=== PATIENT | female | born 1950 | race Caucasian/White ===

== ENCOUNTER 2018-07-13 15:11 | Inpatient (IN) ==
[2018-07-13 16:57] LABS: Baso # (Auto) 0.1 th/mm3 (0.0-0.2); Baso % (Auto) 0.5 % (0.0-2.0); Eos % (Auto) 0.1 % (0.0-4.0); Hematocrit 41.2 % (35.0-46.0); Hemoglobin 13.9 gm/dL (11.6-15.3); Lymph # (Auto) 1.1 th/mm3 (1.0-4.8); Lymph % (Auto) 8.5 % (9.0-44.0); Mean Corpuscular HGB Conc 33.6 % (32.0-36.0); Mean Corpuscular Hemoglobin 30.3 pg (27.0-34.0); Mean Corpuscular Volume 90.2 fL (80.0-100.0); Mean Platelet Volume 9.9 fL (7.0-11.0); Mono # (Auto) 0.7 th/mm3 (0.0-0.9); Mono % (Auto) 5.6 % (0.0-8.0); Neut # (Auto) 10.8 th/mm3 (1.8-7.7); Neut % (Auto) 85.3 % (16.0-70.0); Platelet Count 339 th/mm3 (150-450); Red Blood Count 4.57 mil/mm3 (4.00-5.30); Red Cell Distribution Width 12.7 % (11.6-17.2); White Blood Count 12.6 th/mm3 (4.0-11.0)
[2018-07-13 17:18] LABS: Alanine Aminotransferase 35 U/L (10-53)
[2018-07-13 17:27] LABS: Alkaline Phosphatase 86 U/L (45-117)
[2018-07-13 17:30] LABS: Anion Gap 8 meq/L (5-15); Aspartate Aminotransferase 29 U/L (15-37); Blood Urea Nitrogen 17 mg/dL (7-18); Calcium 9.1 mg/dL (8.5-10.1); Carbon Dioxide 24.7 meq/L (21.0-32.0); Chloride 109 meq/L (98-107); Glomerular Filtration Rate 71 mL/min (>89); Glucose,Random 106 mg/dL (74-106); Magnesium 2.3 mg/dL (1.5-2.5); Potassium 3.6 meq/L (3.5-5.1); Sodium 142 meq/L (136-145)
[2018-07-13 17:37] LABS: Bacteria,Urine Occasional /hpf; Bilirubin,Urine Negative (Negative); Color,Urine Yellow (Yellw/Straw); Glucose,Urine (UA) Negative (Negative); Hyaline Casts,Urine 14 /lpf (0-3); Leukocyte Esterase,Urine Negative (Negative); Mucus,Urine Many /lpf (Occasional); Nitrite,Urine Negative (Negative); Specific Gravity,Urine 1.031 (1.002-1.035); Squamous Epithelial Cell,Urine <1 /hpf (0-5)
--- NOTE | 2018-07-13 17:37 | ED ---
HPI General Chief Complaint: Psychiatric Symptoms Stated Complaint: Psych eval/EDPD Time Seen by Provider: 07/14/18 11:15 History of Present Illness HPI Narrative: Patient is a 68-year-old female who was brought to the emergency room by law enforcement officers for suicidal ideation. Per the medical record patient has been taking care of her mother and reportedly is depressed and overwhelmed by this and requested that a precinct i police sergeant shoot her. When the patient was brought to the pod for evaluation the patient was very agitated and throwing things in the room, threatening to leave. She was restrained and sedated therefore no further HPI is obtainable at this time. Patient is admitted for psychiatric evaluation. Will move forward with medical clearance Related Data Home Medications Medication Instructions Recorded Confirmed sertraline 100 mg PO DAILY 07/14/18 07/14/18 Allergies Allergy/AdvReac Type Severity Reaction Status Date / Time No Known Allergies Allergy Verified 07/13/18 15:52 PM[facility] Social History Social History Substance History: No History of Abuse Second Hand Smoke Exposure: Yes Smoking Status: Current every day smoker Tobacco Type: Cigarettes How Often Do You Have a Drink Containing Alcohol: 2 to 4 times a month Immunization History Tetanus Immunization: Unsure Exam Narrative Exam Narrative: GENERAL: Well-nourished, well-developed patient. SKIN: Focused skin assessment warm/dry. HEAD: Normocephalic. EYES: No scleral icterus. No injection or drainage. NECK: Supple, trachea midline. No JVD or lymphadenopathy. CARDIOVASCULAR: Regular rate and rhythm without murmurs, gallops, or rubs. RESPIRATORY: Breath sounds equal bilaterally. No accessory muscle use. GASTROINTESTINAL: Abdomen soft, non-tender, nondistended. MUSCULOSKELETAL: No cyanosis, or edema. BACK: Nontender without obvious deformity. No CVA tenderness. Psych: Pt alert/aggitated, loses train of thought when trying to communicate history. Course Initial Documented Vital Signs Temperature 98.0 F 07/13/18 15:54 Pulse Rate 108 H 07/13/18 15:54 Respiratory Rate 18 07/13/18 15:54 Blood Pressure 141/88 H 07/13/18 15:54 Last Documented Vital Signs Temperature 98.6 F 07/14/18 18:57 Pulse Rate 89 07/14/18 10:54 Respiratory Rate 14 07/14/18 18:57 Blood Pressure 148/79 H 07/14/18 18:57 Pulse Oximetry 100 07/14/18 18:57 Medical Decision Making MDM Narrative Medical decision making narrative: Patient is a 68 YOF who was brought to the ED under BA by ART. Patient was agitated and aggressive throwing things upon arrival to this pod, refusing labwork, etc. Patient was given Ativan 2 mg IM and Geodon 10 mg IM. She is unable to contribute to HPI. Routine psych clearnace eval in progress. CBC shows mild leukocytosis. UA essentially negative for UTI. UDS + for benzos. TSH unremarkable.CMP shows mildly low chloride but otherwise WNL. Pt clear medically for psych. Patient remains sedated at this time. Medical Screen Exam Complete: Yes Emergency Medical Condition: Yes Differential Diagnosis Differential Diagnosis: Depression./anxiety/psychosis Lab Data Result diagrams: 07/13/18 16:50 07/13/18 16:50 Lab Results 07/13/18 07/13/18 07/13/18 Range/Units 16:50 16:50 17:14 WBC 12.6 H (4.0-11.0) th/mm3 RBC 4.57 (4.00-5.30) mil/mm3 Hgb 13.9 (11.6-15.3) gm/dL Hct 41.2 (35.0-46.0) % MCV 90.2 (80.0-100.0) fL MCH 30.3 (27.0-34.0) pg MCHC 33.6 (32.0-36.0) % RDW 12.7 (11.6-17.2) % Plt Count 339 (150-450) th/mm3 MPV 9.9 (7.0-11.0) fL Neut % (Auto) 85.3 H (16.0-70.0) % Lymph % (Auto) 8.5 L (9.0-44.0) % [place] % (Auto) 5.6 (0.0-8.0) % Eos % (Auto) 0.1 (0.0-4.0) % Baso % (Auto) 0.5 (0.0-2.0) % Neut # (Auto) 10.8 H (1.8-7.7) th/mm3 Lymph # (Auto) 1.1 (1.0-4.8) th/mm3 [place] # (Auto) 0.7 (0.0-0.9) th/mm3 Eos # (Auto) 0.0 (0.0-0.4) th/mm3 Baso # (Auto) 0.1 (0.0-0.2) th/mm3 WBC Differential . Differential Comment Auto diff final Sodium 142 (136-145) meq/L Potassium 3.6 (3.5-5.1) meq/L Chloride 109 H (98-107) meq/L Carbon Dioxide 24.7 (21.0-32.0) meq/L Anion Gap 8 (5-15) meq/L BUN 17 (7-18) mg/dL Creatinine 0.81 (0.50-1.00) mg/dL Estimated GFR 71 L (>89) mL/min Random Glucose 106 (74-106) mg/dL Calcium 9.1 (8.5-10.1) mg/dL Magnesium 2.3 (1.5-2.5) mg/dL Total Bilirubin 0.5 (0.2-1.0) mg/dL AST 29 (15-37) U/L ALT 35 (10-53) U/L Alkaline Phosphatase 86 (45-117) U/L Total Protein 8.0 (6.4-8.2) g/dL Albumin 4.0 (3.4-5.0) g/dL TSH 1.580 (0.358-3.740) uIU/mL Urine Color (Yellw/Straw) Urine Clarity (Clear) Urine pH (5.0-8.5) Ur Specific [place] (1.002-1.035) Urine Protein (Neg-Trace) mg/dL Urine Glucose (UA) (Negative) mg/dL Urine Ketones (Negative) mg/dL Urine Occult Blood (Negative) Urine Nitrate (Negative) Urine Bilirubin (Negative) Urine Urobilinogen (Less than 2) mg/dL Ur Leukocyte Esterase (Negative) Urine RBC (0-3) /hpf Urine WBC (0-5) /hpf Ur Squamous Epith Cells (0-5) /hpf Urine Bacteria (None) /hpf Hyaline Casts (0-3) /lpf Urine Mucus (Occasional) /lpf Micro UA Comment Ur Microscopic Review Urine Culture Comments Urine Opiates Screen Neg (Neg) Ur Barbiturates Screen Neg (Neg) Ur Amphetamines Screen Neg (Neg) U Benzodiazepines Scrn Pos H (Neg) Urine Cocaine Screen Neg (Neg) U Cannabinoids Screen Neg (Neg) Serum Alcohol Less than 3 (0-5) mg/dL 07/13/18 Range/Units 17:14 WBC (4.0-11.0) th/mm3 RBC (4.00-5.30) mil/mm3 Hgb (11.6-15.3) gm/dL Hct (35.0-46.0) % MCV (80.0-100.0) fL MCH (27.0-34.0) pg MCHC (32.0-36.0) % RDW (11.6-17.2) % Plt Count (150-450) th/mm3 MPV (7.0-11.0) fL Neut % (Auto) (16.0-70.0) % Lymph % (Auto) (9.0-44.0) % [place] % (Auto) (0.0-8.0) % Eos % (Auto) (0.0-4.0) % Baso % (Auto) (0.0-2.0) % Neut # (Auto) (1.8-7.7) th/mm3 Lymph # (Auto) (1.0-4.8) th/mm3 [place] # (Auto) (0.0-0.9) th/mm3 Eos # (Auto) (0.0-0.4) th/mm3 Baso # (Auto) (0.0-0.2) th/mm3 WBC Differential Differential Comment Sodium (136-145) meq/L Potassium (3.5-5.1) meq/L Chloride (98-107) meq/L Carbon Dioxide (21.0-32.0) meq/L Anion Gap (5-15) meq/L BUN (7-18) mg/dL Creatinine (0.50-1.00) mg/dL Estimated GFR (>89) mL/min Random Glucose (74-106) mg/dL Calcium (8.5-10.1) mg/dL Magnesium (1.5-2.5) mg/dL Total Bilirubin (0.2-1.0) mg/dL AST (15-37) U/L ALT (10-53) U/L Alkaline Phosphatase (45-117) U/L Total Protein (6.4-8.2) g/dL Albumin (3.4-5.0) g/dL TSH (0.358-3.740) uIU/mL Urine Color Yellow (Yellw/Straw) Urine Clarity Hazy H (Clear) Urine pH 5.0 (5.0-8.5) Ur Specific [place] 1.031 (1.002-1.035) Urine Protein 30 H (Neg-Trace) mg/dL Urine Glucose (UA) Negative (Negative) mg/dL Urine Ketones 20 (Negative) mg/dL Urine Occult Blood Negative (Negative) Urine Nitrate Negative (Negative) Urine Bilirubin Negative (Negative) Urine Urobilinogen 2.0 H (Less than 2) mg/dL Ur Leukocyte Esterase Negative (Negative) Urine RBC Less than 1 (0-3) /hpf Urine WBC 2 (0-5) /hpf Ur Squamous Epith Cells <1 (0-5) /hpf Urine Bacteria Occasional H (None) /hpf Hyaline Casts 14 (0-3) /lpf Urine Mucus Many H (Occasional) /lpf Micro UA Comment Cath-culture ind Ur Microscopic Review Not Reportable Urine Culture Comments Cath-cult indicated Urine Opiates Screen (Neg) Ur Barbiturates Screen (Neg) Ur Amphetamines Screen (Neg) U Benzodiazepines Scrn (Neg) Urine Cocaine Screen (Neg) U Cannabinoids Screen (Neg) Serum Alcohol (0-5) mg/dL Discharge Plan Discharge Disposition Patient Disposition: ED Admit(ED Internal Use Only) Discharge Order Discharge Orders: ED Use Only Admit Order (Routine); Ordered 07/14/18 Ordered By: Spring [facility] Team ED Provider: Nura Aldana ED Midlevel Provider: Britney Jorge Primary Care Provider: UNKNOWN, Attending Provider: Sammy Pedroza Status ED Status: Left Department Discharge Information Discharge Date/Time: 07/14/18 17:09
[2018-07-13 17:38] LABS: Amphetamine Screen,Urine Neg (Neg); Barbiturate Screen,Urine Neg (Neg); Cannabinoid Screen,Urine Neg (Neg); Clarity,Urine Hazy (Clear); Cocaine Screen,Urine Neg (Neg)
[2018-07-13 17:48] LABS: Opiate Screen,Urine Neg (Neg)
--- NOTE | 2018-07-14 12:08 | ED ---
HPI - Psych - General Source: patient, family (Spoke with Whit via telephone [phone]) Mode of arrival: EMS Limitations: no limitations - History of Present Illness MD complaint: other Onset (ago): week(s) Duration: constant History of same: Yes Relieving factors: none Exacerbating factors: other (Current family stressors) Context: not taking psychiatric medications, significant life stressor Associated psychiatric symptoms: other (Anxiety) Associated symptoms: denies other symptoms Treatments prior to arrival: placed on mental health hold, physical restraints, chemical restraints If self harm: other (Denies at present) - General Chief Complaint: Psychiatric Symptoms Stated Complaint: Psych eval/EDPD Time Seen by Provider: 07/14/18 11:15 - History of Present Illness HPI Narrative: History of Present Illness HPI Narrative: Patient is a 68-year-old ,female, , retired legal support specialist, with reported history of depression, anxiety, no previous psychiatric hospitalizations, no history of suicide attempts, who was brought to the emergency room by law enforcement officers under a Benson act. The Benson act alleges that the patient" is off her antidepressants since . Britt is supposed to care for her mother, however allegedly has not been feeding her for a few days. Britt has been acting irrational and even asked for police to shoot her and put her out of her misery. Also stated she would kill herself with the cuffs." On arrival to the ED the patient presented in an agitated manner, is alleged to have been verbally abusive towards staff, throwing things on the floor, threatening to leave not responding to verbal redirection and required ETO as well as restraints for her safety and the safety of others. Nurse Justino report that officers responding to the call reported that she had only been feeding her mother peanut butter for the past week and that DCF has been involved. She also states that the patient's sister who lives in [place] has reported that the patient has been sending her message that make no sense at all. EMR reviewed. No previous contact with [facility] psychiatry. Current toxicology is positive for benzodiazepines. Patient is seen. Patient is alert and oriented, she is not agitated and has been able to maintain self-control. At times during the interview the patient closes her eyes and keeps her eyes closed for extended period of time. She states" I feel better now that I am here in a safe place and so that I can help complete the process to be able to take care of my mother and take her to [place]."Her speech is clear, it is not pressured. She does not present any evidence of any psychosis, denies any hallucinations. I can elicit no delusions or paranoia. Patient reports mood as anxious. Admits that she has not been sleeping well since June 27 and that for the past several days she has only been able to get at most 2-3 hours per night due to caring for her mother. She denies any suicidal or homicidal ideation, intent or plan. Attention is appropriate. Decreased concentration is noted. When asked about concerns that her sister has presented she minimizes these concerns and states "I have been sending her text messages but that was only my attempt to try and keep family of breast of current staging situation". Telephone call to her , Mora Rosas at [phone] with her expressed verbal consent. reports that the patient has been here in [place] for approximately 2 weeks and that he came down from [place] last bone Sunday out of his concern for her psychological state and her ability to take care of herself under current conditions. Goes on to state that" she has been stressed and is having a nervous breakdown". Goes on to state that he had a similar presentation in April and was seen in an emergency department in [place], discharged and had been seeing a therapist for a few sessions. The behaviors he describes is that she has not been sleeping, has been walking around, not making any sense whatsoever, she calls them but then does not allow him to talk. He is concerned for her well-being if she is discharge and would prefer she remain in the hospital for stabilization. He will drive fly down from [place] when the patient is discharged to take her back home. (Spring eJrez) - Related Data Home Medications Medication Instructions Recorded Confirmed sertraline 100 mg PO DAILY 07/14/18 07/14/18 Allergies Allergy/AdvReac Type Severity Reaction Status Date / Time No Known Allergies Allergy Verified 07/13/18 15:52 [facility] - History History Provided By: Patient, Family Member - Social History I have reviewed the patient's Social History: Yes - Tobacco History Tobacco Use In Past 30 Days: Yes Smoking Status: Current every day smoker Tobacco Type: Cigarettes - Alcohol History How Often Do You Have a Drink Containing Alcohol: 2 to 4 times a month - Substance Use History Substance History: No History of Abuse - Immunization History Tetanus Immunization: Unsure Psychiatric History - Psychiatric History Psychiatric Treatment History: History of Psychiatric Treatment History of Inpatient Treatment: No Firearms in Home: No - Psychiatric History Patient denies any previous psychiatric hospitalizations. Does state that approximately 30 years ago she had a similar episode and was diagnosed as having a chemical imbalance. She was ordered amitriptyline and took it for several years. She is now prescribed Zoloft but according to family members stopped taking it. (Jerez,Spring) - Legal History None reported (Jerez,Spring) - Family Psychiatric History None reported (Spring Jerez) Mental Status Examination Consciousness: Alert Orientation: x4 Motor Activity: Normal gait Speech: Rapid Language: Adequate Fund of Knowledge: Adequate Attention and Concentration: Easily distracted Memory: Unremarkable Mood: Anxious Affect: Other (Incongruent to mood at times) Thought Process & Associations: Intact, Logical, Goal directed Thought Content: Appropriate Hallucination Type: None Delusion Type: None Suicidal Ideation: No Suicidal Plan: No Suicidal Intention: No Homicidal Ideation: No Homicidal Plan: No Homicidal Intention: No Insight: Poor Judgment: Impulsive Initial Documented Vital Signs Temperature 98.0 F 07/13/18 15:54 Pulse Rate 108 H 07/13/18 15:54 Respiratory Rate 18 07/13/18 15:54 Blood Pressure 141/88 H 07/13/18 15:54 Last Documented Vital Signs Temperature 98.0 F 07/13/18 15:54 Pulse Rate 89 07/14/18 10:54 Respiratory Rate 18 07/14/18 10:54 Blood Pressure 112/73 07/14/18 10:54 Pulse Oximetry 97 07/14/18 10:54 MDM - Psych - Diagnosis (1) Bipolar disorder, current episode hypomanic Code(s): F31.0 - Bipolar disorder, current episode hypomanic Status: Acute - Lab Data Result diagrams: 07/13/18 16:50 07/13/18 16:50 - [facility] Narrative Medical decision making narrative: 68-year-old female with reported history of depression under a Benson act after the police were called due to family concerns over her behavior including not feeding her mom whom she was taking care of for a few days, acting irrational and requesting the police to shoot her and put her out of her misery, not sleeping for extended period of time. Her presented concerns over the patient's behavior over the recent weeks including her lack of sleep, her walking around aimlessly, hyperverbal speech, and poor judgment. Patient meets criteria for inpatient psychiatric treatment for further evaluation, stabilization and for safety. This plan was discussed with her who agrees completely and who states he will fly down to [place] to pick her up and bring her back to [place] upon discharge. (Spring Jerez) - Lab Data Lab Results 07/13/18 07/13/18 07/13/18 Range/Units 16:50 16:50 17:14 WBC 12.6 H (4.0-11.0) th/mm3 RBC 4.57 (4.00-5.30) mil/mm3 Hgb 13.9 (11.6-15.3) gm/dL Hct 41.2 (35.0-46.0) % MCV 90.2 (80.0-100.0) fL MCH 30.3 (27.0-34.0) pg MCHC 33.6 (32.0-36.0) % RDW 12.7 (11.6-17.2) % Plt Count 339 (150-450) th/mm3 MPV 9.9 (7.0-11.0) fL Neut % (Auto) 85.3 H (16.0-70.0) % Lymph % (Auto) 8.5 L (9.0-44.0) % [place] % (Auto) 5.6 (0.0-8.0) % Eos % (Auto) 0.1 (0.0-4.0) % Baso % (Auto) 0.5 (0.0-2.0) % Neut # (Auto) 10.8 H (1.8-7.7) th/mm3 Lymph # (Auto) 1.1 (1.0-4.8) th/mm3 [place] # (Auto) 0.7 (0.0-0.9) th/mm3 Eos # (Auto) 0.0 (0.0-0.4) th/mm3 Baso # (Auto) 0.1 (0.0-0.2) th/mm3 WBC Differential . Differential Comment Auto diff final Sodium 142 (136-145) meq/L Potassium 3.6 (3.5-5.1) meq/L Chloride 109 H (98-107) meq/L Carbon Dioxide 24.7 (21.0-32.0) meq/L Anion Gap 8 (5-15) meq/L BUN 17 (7-18) mg/dL Creatinine 0.81 (0.50-1.00) mg/dL Estimated GFR 71 L (>89) mL/min Random Glucose 106 (74-106) mg/dL Calcium 9.1 (8.5-10.1) mg/dL Magnesium 2.3 (1.5-2.5) mg/dL Total Bilirubin 0.5 (0.2-1.0) mg/dL AST 29 (15-37) U/L ALT 35 (10-53) U/L Alkaline Phosphatase 86 (45-117) U/L Total Protein 8.0 (6.4-8.2) g/dL Albumin 4.0 (3.4-5.0) g/dL TSH 1.580 (0.358-3.740) uIU/mL Urine Color (Yellw/Straw) Urine Clarity (Clear) Urine pH (5.0-8.5) Ur Specific [place] (1.002-1.035) Urine Protein (Neg-Trace) mg/dL Urine Glucose (UA) (Negative) mg/dL Urine Ketones (Negative) mg/dL Urine Occult Blood (Negative) Urine Nitrate (Negative) Urine Bilirubin (Negative) Urine Urobilinogen (Less than 2) mg/dL Ur Leukocyte Esterase (Negative) Urine RBC (0-3) /hpf Urine WBC (0-5) /hpf Ur Squamous Epith Cells (0-5) /hpf Urine Bacteria (None) /hpf Hyaline Casts (0-3) /lpf Urine Mucus (Occasional) /lpf Micro UA Comment Ur Microscopic Review Urine Culture Comments Urine Opiates Screen Neg (Neg) Ur Barbiturates Screen Neg (Neg) Ur Amphetamines Screen Neg (Neg) U Benzodiazepines Scrn Pos H (Neg) Urine Cocaine Screen Neg (Neg) U Cannabinoids Screen Neg (Neg) Serum Alcohol Less than 3 (0-5) mg/dL 07/13/18 Range/Units 17:14 WBC (4.0-11.0) th/mm3 RBC (4.00-5.30) mil/mm3 Hgb (11.6-15.3) gm/dL Hct (35.0-46.0) % MCV (80.0-100.0) fL MCH (27.0-34.0) pg MCHC (32.0-36.0) % RDW (11.6-17.2) % Plt Count (150-450) th/mm3 MPV (7.0-11.0) fL Neut % (Auto) (16.0-70.0) % Lymph % (Auto) (9.0-44.0) % Snyder % (Auto) (0.0-8.0) % Eos % (Auto) (0.0-4.0) % Baso % (Auto) (0.0-2.0) % Neut # (Auto) (1.8-7.7) th/mm3 Lymph # (Auto) (1.0-4.8) th/mm3 [place] # (Auto) (0.0-0.9) th/mm3 Eos # (Auto) (0.0-0.4) th/mm3 Baso # (Auto) (0.0-0.2) th/mm3 WBC Differential Differential Comment Sodium (136-145) meq/L Potassium (3.5-5.1) meq/L Chloride (98-107) meq/L Carbon Dioxide (21.0-32.0) meq/L Anion Gap (5-15) meq/L BUN (7-18) mg/dL Creatinine (0.50-1.00) mg/dL Estimated GFR (>89) mL/min Random Glucose (74-106) mg/dL Calcium (8.5-10.1) mg/dL Magnesium (1.5-2.5) mg/dL Total Bilirubin (0.2-1.0) mg/dL AST (15-37) U/L ALT (10-53) U/L Alkaline Phosphatase (45-117) U/L Total Protein (6.4-8.2) g/dL Albumin (3.4-5.0) g/dL TSH (0.358-3.740) uIU/mL Urine Color Yellow (Yellw/Straw) Urine Clarity Hazy H (Clear) Urine pH 5.0 (5.0-8.5) Ur Specific [place] 1.031 (1.002-1.035) Urine Protein 30 H (Neg-Trace) mg/dL Urine Glucose (UA) Negative (Negative) mg/dL Urine Ketones 20 (Negative) mg/dL Urine Occult Blood Negative (Negative) Urine Nitrate Negative (Negative) Urine Bilirubin Negative (Negative) Urine Urobilinogen 2.0 H (Less than 2) mg/dL Ur Leukocyte Esterase Negative (Negative) Urine RBC Less than 1 (0-3) /hpf Urine WBC 2 (0-5) /hpf Ur Squamous Epith Cells <1 (0-5) /hpf Urine Bacteria Occasional H (None) /hpf Hyaline Casts 14 (0-3) /lpf Urine Mucus Many H (Occasional) /lpf Micro UA Comment Cath-culture ind Ur Microscopic Review Not Reportable Urine Culture Comments Cath-cult indicated Urine Opiates Screen (Neg) Ur Barbiturates Screen (Neg) Ur Amphetamines Screen (Neg) U Benzodiazepines Scrn (Neg) Urine Cocaine Screen (Neg) U Cannabinoids Screen (Neg) Serum Alcohol (0-5) mg/dL
[2018-07-14] MEDS ORDERED: Aluminum/Magnesium/Simethacone Susp 30 ML UDC PO PRN (12:10)
[2018-07-14] MEDS: Senna/Docusate Sodium 8.6/50 MG Tablet PO SCH (23:08)
[2018-07-15 07:21] LABS: Anion Gap 10 meq/L (5-15); Blood Urea Nitrogen 13 mg/dL (7-18); Calcium 8.2 mg/dL (8.5-10.1); Carbon Dioxide 24.3 meq/L (21.0-32.0); Chloride 106 meq/L (98-107); Cholesterol 123 mg/dL (120-200); Glomerular Filtration Rate Greater Than 89 mL/min (>89); Glucose,Random 91 mg/dL (74-106); Potassium 3.3 meq/L (3.5-5.1); Sodium 140 meq/L (136-145); Triglycerides 65 mg/dL (42-150)
[2018-07-15 07:25] LABS: Chol/HDL Ratio 1.93 Ratio; HDL Cholesterol 63.5 mg/dL (40.0-60.0); LDL Cholesterol,Calculated 47 mg/dL (0-99)
[2018-07-15] MEDS: Senna/Docusate Sodium 8.6/50 MG Tablet PO SCH ×2 (08:23→20:27)
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
[2018-07-15] MEDS ORDERED: Acetaminophen 325 MG Tablet PO PRN (15:16)
[2018-07-15 19:00] LABS: Hemoglobin A1c 5.4 % (4.3-6.0)
[2018-07-15] MEDS: traZODone 50 MG Tablet PO PRN (20:26)
[2018-07-16] MEDS: Sertraline 50 MG Tablet PO SCH (08:36)
[2018-07-16] MEDS: Senna/Docusate Sodium 8.6/50 MG Tablet PO SCH ×2 (08:39→20:12)
[2018-07-16] MEDS: Divalproex 250 MG DR Tablet PO SCH ×2 (10:35→20:11)
[2018-07-16] MEDS: Divalproex 500 MG DR Tablet PO SCH ×2 (10:35→20:11)
--- NOTE | 2018-07-16 15:25 | ECG ---
Date Performed: 07/15/2018 Time Performed: 11:17:46 PTAGE: 68 years EKG: Sinus rhythm MODERATE INTRAVENTRICULAR CONDUCTION DELAY MINIMAL VOLTAGE CRITERIA FOR LVH, CONSIDER NORMAL VARIANT BORDERLINE ECG NO PREVIOUS TRACING DOCTOR: Dandre Starks Interpretating Date/Time 07/16/2018 15:20:43
--- NOTE | 2018-07-16 16:20 | P.PNPSY ---
Subjective Chief Complaint: "I have been overtired and overwhelmed" Remarks: Patient seen for follow-up, chart reviewed, patient discussed with nursing staff ; we reviewed the patient's mood, thoughts, and behaviors from overnight and this morning. There is reports the patient was up after midnight with a rambling speech and disorganized behavior. She reportedly came out of her room and dressed. She is also been observed on the unit and in the day room talking to herself for up to an hour straight. Patient reportedly only got 4 hours of sleep last night even though she had trazodone 50 mg as needed. The patient was seen this morning after breakfast and reports that her "mind is still racing But I want to be discharged." The patient reports that her is getting into night and she would like to be discharged so she can meet them at the hotel room. We discussed our plan of making medication adjustments to stabilize her mental status and she acknowledges that the initial trial of trazodone was ineffective. We discussed risks benefits side effects and alternative treatments and she agrees to start Depakote for acute management of marvel. She refuses antipsychotics or benzodiazepines at this time. She agreed for continued hospitalization and reconsideration of discharge tomorrow. She asked that her spouse be involved in the discharge planning; the patient's spouse was contacted by phone at [phone], and he acknowledged an understanding of the treatment plan as well as his support. Patient's spouse indicates that from his interactions with her on the phone she is still not at her baseline mental status or personality and he would prefer that she stay there over night and reevaluate during a family meeting tomorrow at 1:00. Review of Systems unobtainable due to mental status Mental Status Examination Appearance: Appropriate Consciousness: Alert Orientation: x4 Motor Activity: Normal gait Speech: Pressured Language: Adequate Fund of Knowledge: Adequate Attention and Concentration: Easily distracted Memory: Unremarkable Mood: Anxious Affect: Appropriate Thought Process & Associations: Logical, Circumstantial Thought Content: Appropriate Hallucination Type: None Delusion Type: None Suicidal Ideation: No Suicidal Plan: No Suicidal Intention: No Homicidal Ideation: No Homicidal Plan: No Homicidal Intention: No Insight: Fair Judgment: Impulsive Assessment and Plan - Assessment (1) Bipolar disorder, current episode hypomanic Code(s): F31.0 - Bipolar disorder, current episode hypomanic Status: Acute (2) Anxiety disorder, unspecified Code(s): F41.9 - Anxiety disorder, unspecified Status: Acute - Plan Plan: 07/15/2018: 1. Continue with admission to inpatient psychiatry at [facility]; voluntary /competent legal status. 2. Routine unit precautions. 3. Comfort medications ordered for as needed treatment of constipation, heartburn, diarrhea, and mild pain. 4. Trazodone 50 mg at bedtime as needed for insomnia. 5. Decrease patient's Zoloft to 50 mg/day for treatment of chronic anxiety. 6. Patient will participate in the unit programming to include group therapies , milieu therapy and recreational therapies. 7. Discharge planning: The patient's spouse is on his way from [place] to hand picker patient. Patient plans to stay in the area for approximately 2 weeks therefore will need a discharge follow-up appointment with the local [facility] clinic to ensure stability after discharge. 07/16/2018: Unsatisfactory response to initial inpatient treatment. The patient continues to have symptoms of marvel that include racing thoughts, tangential speech/ thoughts, intrusive behavior and labile moods. Patient is denying thoughts of harming self or others but her disorganized thought processes do place her at risk of harm through self neglect. The initial attempts to stabilize patient's mental status by getting her more restorative sleep was ineffective and the patient agrees to a more aggressive approach. Continue inpatient stabilization and treatment of her symptoms of marvel. Continue the lower dose of Zoloft 50 mg a day for her chronic anxiety. Continue trazodone 50 mg at bedtime as needed for insomnia. Start Depakote DR 750 mg twice a day for acute management of marvel.Discharge planning: The patient and spouse arrived tonight and will present tomorrow afternoon at approximately 1 PM for a family meeting for safety planning and discharge planning. Anticipate possible discharge to the care of the patient's spouse tomorrow if there is a positive response to treatment overnight. Justification for Continued Inpatient Stay: Patient remains an elevated risk for self-harm by self neglect and will require further inpatient stabilization and preparation of a safe discharge plan. Moving patient to a less restrictive environment at this time may result in decompensation. (2) Anxiety disorder, unspecified Qualifiers: Anxiety disorder type: other anxiety disorder Qualified Code(s): F41.8 - Other specified anxiety disorders
[2018-07-16 18:17] VITALS: O2SAT 96
[2018-07-16] MEDS: traZODone 50 MG Tablet PO PRN (20:12)
[2018-07-17 05:15] VITALS: BP 140/68; PULSE 92; RESP 16; TEMP 97.6
[2018-07-17] MEDS: Divalproex 500 MG DR Tablet PO SCH (08:18)
[2018-07-17] MEDS: Divalproex 250 MG DR Tablet PO SCH (08:18)
[2018-07-17] MEDS: Sertraline 50 MG Tablet PO SCH (08:18)
[2018-07-17] MEDS: Senna/Docusate Sodium 8.6/50 MG Tablet PO SCH (08:19)
[2018-07-17] MEDS ORDERED: clonazePAM 1 MG Tablet PO SCH (10:15)
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
== END 2018-07-17 14:50 | disposition home or self-care (01) ==
LOC: NEPD 15:11 → NEDA 07-14 12:10 → H260 07-14 14:39
PROVIDERS: ADMIT Psychiatry & Neurology Psychiatry; ATTEND Psychiatry & Neurology Psychiatry